=== PATIENT | female | born 2000 | race African-American/Black ===

== ENCOUNTER 2021-05-16 12:38 | Emergency (ER) | payer BC, SELFPAY ==
--- NOTE | 2021-05-16 12:49 | ED.URI ---
HPI - URI/Sore Throat General Chief Complaint: Upper Respiratory Infection Stated Complaint: body aches/congestion/cough/sore throat Time Seen by Provider: 05/16/21 12:49 Source: patient and RN notes reviewed History of Present Illness HPI Narrative: Patient is a 20-year-old female who presents to care with complaints of body aches, cough, congestion, sore throat and back pain. Patient states is been ongoing since May 12. Patient states that she was seen at [place] urgent [facility] on Tuesday and had a negative PCR Covid test. Patient states that she has been taking the steroid pack that they gave her at [place] as well as Tylenol for her symptoms. Denies of any known exposure or contact to flu, strep or Covid. No other acute complaints. No acute distress noted. Patient aware of the plan of care. Some parts of this dictation were generated by voice recognition software and may contain typographical and/or grammatical inaccuracies. Related Data Allergies Allergy/AdvReac Type Severity Reaction Status Date / Time No Known Allergies Allergy Verified 05/16/21 12:54 Review of Systems Review of Systems: CONSTITUTIONAL: Denies fever, chills, or sweats. EYES: Denies visual changes, redness, or discharge. ENT: Reports of sinus congestion and sore throat CARDIOVASCULAR: Denies chest pain, palpitations, or edema. RESPIRATORY: Reports of cough without dyspnea GASTROINTESTINAL: Denies abdominal pain, nausea, vomiting, or diarrhea. GENITOURINARY: Denies dysuria or hematuria. SKIN: Denies rash or itching. MUSCULOSKELETAL: Reports of mid back pain and body aches NEUROLOGIC: Denies headache, numbness, or weakness. All other systems reviewed are negative, except as documented in HPI. PMFSH Comments At the time of my signature, I reviewed and agree with the nursing past medical, surgical, social, and family history. There is no relevant family history pertinent to the patient complaint. Exam Narrative: GENERAL: This is a well-nourished, well-developed patient, in no apparent distress. HEAD: normocephalic, atraumatic. EYES: PERRL. Sclera clear/white. Vision is grossly intact. EARS: External ears normal, auditory canals clear and without drainage, TMs normal without perforation. Hearing grossly intact. NOSE: External nose normal with no obvious nasal discharge, nares without redness, clear rhinorrhea. THROAT: Mucous membranes moist, moderate erythema noted posterior oropharynx with mild postnasal drainage NECK: Neck supple, non-tender without lymphadenopathy, masses or thyromegaly. CARDIOVASCULAR: Regular rate and rhythm without murmurs, gallops, or rubs. RESPIRATORY: Clear to auscultation. Breath sounds equal bilaterally. No wheezes, rales, or rhonchi. SKIN: warm, intact with no suspicious lesions or rash, good texture and turgor. NEURO: awake, alert, and oriented to person, place and time. There were no obvious focal neurologic abnormalities. EXTREMITIES: No clubbing, cyanosis, or edema. BACK: Nontender without deformity or crepitance. No flank tenderness. Course Vital Signs Vital signs: Vital Signs Temperature 98.1 F 05/16/21 12:53 Pulse Rate 92 05/16/21 12:53 Respiratory Rate 16 05/16/21 12:53 Blood Pressure 130/82 05/16/21 12:53 Pulse Oximetry 98 05/16/21 12:53 Temperature 98.1 F 05/16/21 12:53 Pulse Rate 92 05/16/21 12:53 Respiratory Rate 16 05/16/21 12:53 Blood Pressure 130/82 05/16/21 12:53 Pulse Oximetry 98 05/16/21 12:53 Reviewed MDM - URI/Sore Throat MDM Narrative Medical decision making narrative: Reviewed lab results with the patient. She is aware that her flu swab was negative. Aware that strep swab was also negative. Educated the patient on culture we will call within 72 hours if culture is positive and antibiotics are necessary. Advised the patient to use [id number] medications such as Tylenol/ibuprofen as needed for her symptoms. May take a daily Claritin for postnasal dr
[2021-05-16 12:53] VITALS: BP 130/82; PULSE 92; RESP 16; TEMP 36.7; O2SAT 98
== END 2021-05-16 13:17 | disposition home or self-care (01) ==
PROVIDERS: Emergency Provider Nurse Practitioner Family
DX: B34.9 Viral infection, unspecified (principal)
CPT/HCPCS: 87081; 87804; 87880; 99213; G0463

== ENCOUNTER 2021-11-06 08:48 | Emergency (ER) | payer MEDICAID, SELFPAY ==
[2021-11-06 09:13] VITALS: BP 107/70; PULSE 89; RESP 12; TEMP 36.6; O2SAT 100
[2021-11-06 09:17] VITALS: O2SAT 100
[2021-11-06 09:32] VITALS: O2SAT 100
[2021-11-06] MEDS: MORPHINE SULFATE INJ (*CRX) 10 MG/ML AMP 4 MG IM (10:46)
--- NOTE | 2021-11-06 11:38 | ED.SKABFB ---
HPI - Skin/Abscess/Foreign Bdy General Chief complaint: Skin/Abscess/Foreign Body Stated complaint: abscess/boil Time Seen by Provider: 11/06/21 09:41 History of Present Illness HPI narrative: Patient is a 20-year-old female who presents ER with left axillary abscess. Present for 3 months. Waxing waning intensity of pain. Intermittently draining. Over the last couple days it started draining on its own once again. The drainage is yellow and thick. No fevers or chills or sweats. Has pain with palpation. Slight erythema around the opening. Has not seen a general surgeon or plastic surgeon for excision of cystic cavity. Related Data Allergies Allergy/AdvReac Type Severity Reaction Status Date / Time No Known Allergies Allergy Verified 05/16/21 12:54 Review of Systems Constitutional: Constitutional: Denies chills, Denies fever(s) and Denies weakness Musculoskeletal: Musculoskeletal: Denies arthralgias, Denies joint swelling and Denies muscle cramps Integumentary/Breasts: Skin/Breast: Reports erythema and Denies rash Comments: Draining abscess PMFSH Past Medical History Medical History (Updated 11/06/21 @ 11:54 by Van Sheth MD) Healthy female adult Surgical History Surgical History (Updated 11/06/21 @ 11:54 by Van Sheth MD) No pertinent past surgical history Exam Narrative: GENERAL: Well-appearing, well-nourished, and in no acute distress. HEAD: Normocephalic, atraumatic. CHEST: Clear to auscultation. No respiratory distress. HEART: Regular rate and rhythm. Normal peripheral pulses. EXTREMITIES: Normal range of motion. No edema. SKIN: Warm, dry, no rash. Draining abscess left axillary region and inferior aspect posterior. Slight surrounding erythema. NEURO: Alert and oriented x3. PSYCH: Normal mood and affect. Course Course Emergency Course: Patient given morphine for pain. Pressure applied around the drainage site until no additional drainage can be pushed out. Will start on Bactrim and pain medication. Referral to general surgery. Vital Signs Vital signs: Vital Signs Temperature 97.9 F 11/06/21 09:13 Pulse Rate 89 11/06/21 09:13 Respiratory Rate 12 11/06/21 09:13 Blood Pressure 107/70 11/06/21 09:13 Pulse Oximetry 100 11/06/21 09:13 Temperature 97.9 F 11/06/21 09:13 Pulse Rate 89 11/06/21 09:13 Respiratory Rate 12 11/06/21 09:13 Blood Pressure 107/70 11/06/21 09:13 Pulse Oximetry 100 11/06/21 09:32 Discharge Plan Discharge Clinical Impression: Abscess of axilla, left Patient Disposition: Home, Self-Care Condition: Stable Instructions: Antibiotic Form, Abscess (ED) Additional Instructions: Return the ER if you have worsening pain, you have new fever over 100.4 ?F, you cannot keep down food or water, you have additional concerns. Prescriptions: New sulfamethoxazole-trimethoprim [Bactrim DS] 800-160 mg tablet 1 tablet PO Q12H Qty: 20 RF: 0 hydrocodone-acetaminophen 5-325 mg tablet 1 tablet PO Q6H PRN (Reason: pain) Qty: 14 RF: 0 Follow-up/Referrals: Christian Xiong MD [Physician] - 1 Week UNKNOWN,DOCTOR [Primary Care Provider] - Stand Alone Forms: Work/School Release IP
[2021-11-06 11:45] VITALS: BP 105/83; PULSE 75; RESP 18; TEMP 36.7; O2SAT 100
== END 2021-11-06 11:45 | disposition home or self-care (01) ==
PROVIDERS: Emergency Provider Emergency Medicine
DX: L02.412 Cutaneous abscess of left axilla (principal)
CPT/HCPCS: 87070; 87077; 87147; 87186; 87205; 96372; 99283; J2270

== ENCOUNTER 2022-06-15 13:08 | Emergency (ER) | payer BC, SELFPAY ==
[2022-06-15 13:24] VITALS: BP 117/60; PULSE 89; RESP 16; TEMP 36.3; O2SAT 100
--- NOTE | 2022-06-15 14:01 | ED.FEMALEGU ---
HPI - Female Genitourinary General Chief complaint: Vaginal Bleeding Stated complaint: Vaginal bleeding Time Seen by Provider: 06/15/22 13:35 Source: patient Mode of arrival: ambulatory Limitations: no limitations History of Present Illness HPI Narrative: Patient is 21 years old though -Irish female came with vaginal bleeding started last night, slight, like it. This morning. She denies any fever, chills, nausea, vomiting, cramps. Patient is 0 para 0 0. Last menstrual period was May 21 until May 25, patient had vaginal intercourse without condom on May 28, subsequently received Plan B, June 06 patient had vaginal bleeding lasted for 2 days then resolved different than her regular., And the bleeding started again last night and looks like it. Today. Patient elected menstrual cycle on June 20. Related Data Allergies Allergy/AdvReac Type Severity Reaction Status Date / Time No Known Allergies Allergy Verified 05/16/21 12:54 Review of Systems Review of Systems: All systems reviewed & are unremarkable except as noted in HPI and below PMFSH Past Medical History Medical History Healthy female adult Surgical History Surgical History No pertinent past surgical history Exam Narrative: General appearance: Well-developed, well-nourished Skin: Normal color Head: Normocephalic, nontraumatic Eyes: Clear conjunctiva ENT: Oropharynx normal, ears normal, nose normal Neck: Supple, nontender Chest and respiratory: Airway patent, no respiratory distress, no accessory muscle use Heart: Regular rate/rhythm Abdomen: Soft, nontender, no organomegaly, quiet bowel sounds Vascular: Normal peripheral pulses, normal capillary refill. Musculoskeletal: Normal range of motion, nontender back Neurologic: Alert and oriented ?3, [employer] is normal as tested, no gross motor deficit : Speculum Exam - Vagina: normal appearance of the vagina and vaginal bleeding (Trace of fresh red bright blood) Speculum Exam - Cervix: normal appearance of the cervix and Cervical os closed Bimanual Exam- Adnexa, other: no masses Course [employer]/PA Physician Supervision Intermittent vaginal bleeding high likely secondary to Plan B Physical examination today showed no acute abnormalities, is negative. Vital Signs Vital signs: Vital Signs Temperature 36.3 C L 06/15/22 13:24 Pulse Rate 89 06/15/22 13:24 Respiratory Rate 16 06/15/22 13:24 Blood Pressure 117/60 06/15/22 13:24 Pulse Oximetry 100 06/15/22 13:24 Oxygen Delivery Room Air 06/15/22 13:24 Temperature 36.3 C L 06/15/22 13:24 Pulse Rate 89 06/15/22 13:24 Respiratory Rate 16 06/15/22 13:24 Blood Pressure 117/60 06/15/22 13:24 Pulse Oximetry 100 06/15/22 13:24 Oxygen Delivery Room Air 06/15/22 13:24 MDM - Female Genitourinary Differential Diagnosis Differential diagnosis: Likely other (Dysfunctional uterine bleeding) Critical Care Time Critical Care Time Critical Care Time: No Discharge Plan Discharge Clinical Impression: Dysfunctional uterine bleeding Patient Disposition: Home, Self-Care Condition: Stable Instructions: Antibiotic Form, Abnormal (Dysfunctional) Uterine Bleeding (ED) Additional Instructions: Return if symptoms are worsening , call your family physician for appointment, take Tylenol as as needed for aches and pain, continue home medications. Side effects of Plan B are Nausea or vomiting, dizziness, fatigue, headache, breast tenderness, bleeding between periods or heavier menstrual bleeding, lower
== END 2022-06-15 14:22 | disposition home or self-care (01) ==
PROVIDERS: Emergency Provider Emergency Medicine
DX: N93.8 Other specified abnormal uterine and vaginal bleeding (principal)
CPT/HCPCS: 81025; 99283

== ENCOUNTER 2022-06-21 20:07 | Emergency (ER) | payer BC, SELFPAY ==
[2022-06-21 20:20] VITALS: BP 136/62; PULSE 92; RESP 16; TEMP 36.5; O2SAT 100
[2022-06-21 20:36] LABS: Hematocrit 39.5 % (37.0-47.0); Hemoglobin 13.4 g/dL (12.0-15.0); Mean Corpuscular HGB Conc 33.9 g/dl (32-36); Mean Corpuscular Hemoglobin 25.4 pg (26-34); Mean Corpuscular Volume 74.8 fl (80-100); Mean Platelet Volume 8.9 fl (7.4-10.4); Platelet Count Result 410 k/mm3 (150-375); Red Blood Count 5.28 M/mm3 (4.2-5.4); Red Cell Distribution Width 13.6 % (11.5-14.5); White Blood Count 9.6 K/mm3 (4.5-10.0)
[2022-06-21 21:14] LABS: Basophils Absolute Manual 0.09 K/mm3 (0.0-0.1); Basophils Percent Manual 1 % (0-1); Eosinophils Absolute Manual 0.48 K/mm3 (0.02-0.5); Eosinophils Percent Manual 5 % (0-4); Lymphocytes Absolute Manual 3.74 K/mm3 (1.1-4.5); Monocytes Absolute Manual 0.48 K/mm3 (0.1-0.90); Monocytes Percent Manual 5 % (3-9); Neutrophils Percent Manual 50 % (46-73); Platelet Estimate Adequate (Adequate); Total Cells Counted 100
[2022-06-21 21:16] LABS: Rouleaux 1+ (NORMAL)
[2022-06-21 21:17] LABS: Anisocytosis 1+ (NORMAL); Macrocytosis 1+ (NORMAL); Microcytosis 1+ (NORMAL)
[2022-06-21 21:18] LABS: Atypical Lymphocytes Present; Smudge Cells FEW
[2022-06-21 21:44] LABS: Schistocytes None Seen (NORMAL)
[2022-06-21 21:58] VITALS: BP 107/79; PULSE 75
[2022-06-21 22:02] VITALS: BP 110/79; PULSE 86
[2022-06-21 22:06] VITALS: BP 107/69; PULSE 83
--- NOTE | 2022-06-21 23:30 | ED.FEMALEGU ---
HPI - Female Genitourinary General Chief complaint: Vaginal Bleeding Stated complaint: vaginal bleeding Time Seen by Provider: 06/21/22 22:56 Source: patient Mode of arrival: ambulatory Limitations: no limitations History of Present Illness HPI Narrative: This is a 21-year-old female that presents to the emergency department for abnormal uterine bleeding. Reports she had unprotected sex at the end of last month. On the first of this month she took Plan B. Since she has taken Plan B she has had irregular bleeding. Reports over the last 5 days she has had some heavy bleeding which prompted her to be seen. Denies fever, or pelvic pain. Related Data Allergies Allergy/AdvReac Type Severity Reaction Status Date / Time No Known Allergies Allergy Verified 06/21/22 20:19 Review of Systems Review of Systems: CONSTITUTIONAL: Denies fever GASTROINTESTINAL: Denies abdominal pain, vomiting All systems reviewed & are unremarkable except as noted in HPI and below PMFSH Past Medical History Medical History Healthy female adult Surgical History Surgical History No pertinent past surgical history Social History Social History (Updated 06/21/22 @ 23:35 by Ruba Cortez PA-C) Substance use: never Exam Narrative: GENERAL: Well-appearing, well-nourished, and in no acute distress. HEAD: Normocephalic, atraumatic. EYES: EOMI. CHEST: No respiratory distress. HEART: Regular rate EXTREMITIES: Normal range of motion. No edema. SKIN: Warm, dry, no rash. NEURO: No focal deficits. Alert and oriented x3. PSYCH: Normal mood and affect PELVIC: Normal external genitalia. Normal appearing cervix. Small amount of dark red blood in the vaginal vault Course Vital Signs Vital signs: Vital Signs Temperature 97.7 F 06/21/22 20:20 Pulse Rate 92 06/21/22 20:20 Respiratory Rate 16 06/21/22 20:20 Blood Pressure 136/62 06/21/22 20:20 Pulse Oximetry 100 06/21/22 20:20 Oxygen Delivery Room Air 06/21/22 20:20 Temperature 97.7 F 06/21/22 20:20 Pulse Rate 83 06/21/22 22:06 Respiratory Rate 16 06/21/22 20:20 Blood Pressure 107/69 06/21/22 22:06 Pulse Oximetry 100 06/21/22 20:20 Oxygen Delivery Room Air 06/21/22 20:20 MDM - Female Genitourinary MDM Narrative Medical decision making narrative: Patient presents emergency department for irregular menstrual bleeding. Reports she took a Plan B at the beginning of this month as she had unprotected sex at the end of last month. Since she has been having some irregular bleeding. She had some heavy bleeding over the last 5 days which prompted her to be seen. Her vitals are stable. Her hemoglobin is normal. No concerning amount of bleeding on exam. Patient does report she wishes to be started on some control pills. I will send her a month prescription. She was instructed she should follow-up with a supervisor crack off. She was given warnings to return to the ER Lab Data Attestation: I reviewed the patient's lab results. Result diagrams: 06/21/22 20:30 Labs: Lab Results 06/21/22 Range/Units 20:30 WBC 9.6 (4.5-10.0) K/mm3 RBC 5.28 (4.2-5.4) M/mm3 Hgb 13.4 (12.0-15.0) g/dL Hct 39.5 (37.0-47.0) % MCV 74.8 L (80-100) fl MCH 25.4 L (26-34) pg MCHC 33.9 (32-36) g/dl RDW 13.6 (11.5-14.5) % Plt Count 410 H (150-375) k/mm3 MPV 8.9 (7.4-10.4) fl Immature Gran % (Auto) Not Reportable Neut % (Auto) Not Reportable Lymph % (Auto) Not Reportable Murray % (Auto) Not Reportable Eos % (Auto) Not Reportable Baso % (Auto) Not Reportable Lymph # (Auto) Not Reportable Murray # (Auto) Not Reportable Eos # (Auto) Not Reportable Baso # (Auto) Not Reportable Abs Immat Gran (auto) Not Reportable Absolute Neuts (auto) Not Reportable Absolute Nucleated RBC Not Reportable Total Coun
== END 2022-06-22 00:11 | disposition home or self-care (01) ==
PROVIDERS: Emergency Provider Emergency Medicine
DX: N93.8 Other specified abnormal uterine and vaginal bleeding (principal)
CPT/HCPCS: 36415; 81025; 85025; 99284

== ENCOUNTER 2022-12-15 09:55 | Emergency (ER) | payer BC, SELFPAY ==
--- NOTE | ~2022-12-15 | CT_ITS ---
EXAMINATION: CT abdomen pelvis w con DATE: 12/15/2022 12:36 INDICATION: Lower abdominal and back pain and cramping. Nausea. TECHNIQUE: Computed tomography (CT) of the abdomen and pelvis was performed with 100 mL Omnipaque-350 intravenous contrast. Automated exposure control and iterative reconstruction technique were employe d. The dose-length product was 701.84 mGy-cm. COMPARISON: None FINDINGS: Lung bases are clear. Heart size is normal. No pericardial or pleural effusion. Liver, gallbladder, s pleen, pancreas, bilateral adrenal glands and kidneys are normal. Bowels including the appendix are n ormal. Bladder, anteverted uterus and left adnexa are unremarkable. Correlated enhancing margins to a likely partially collapsed 2.2 cm corpus luteum cyst at the right adnexa. Small amount of likely phy siologic free fluid in the cul-de-sac. No abscess or free intraperitoneal gas. Small fat-containing u mbilical hernia. A few mildly prominent but still normal-sized lymph nodes along the ileocolic chain with largest lymph node measuring up to 7 mm in maximal short axis diameter. Are pathologically enlar ged abdominal or pelvic lymphadenopathy. Mild thoracolumbar levocurvature. IMPRESSION: 1. 2.2 cm corpus luteum cyst at the right adnexa with small amount of likely physiologic free fluid i n the cul-de-sac. No other acute intra-abdominal/pelvic process. Reviewed, dictated and finalized at location A. IMPRESSION: 1. 2.2 cm corpus luteum cyst at the right adnexa with small amount of likely ph ysiologic free fluid in the cul-de-sac. No other acute intra-abdominal/pelvic p rocess.
--- NOTE | ~2022-12-15 | US_ITS ---
EXAMINATION: US pelvic complete w TV DATE: 12/15/2022 14:07 INDICATION: Right ovarian cyst Comparison:No prior studies for comparison. TECHNIQUE: Multiple transabdominal and endovaginal sonographic images of the pelvis performed. FINDINGS: The uterus measures 8.3 x 4 x 4.1 cm. The endometrial complex measures 1.5 cm. The right ovary measures 4 x 2.3 x 2.1 cm and the left ovary measures 2.3 x 1.3 x 1.8 cm. There are small follicles in each ovary. Normal doppler signal in both ovaries. There is free fluid in the pelvis. There are no abnormal masses seen on either side. IMPRESSION: 1. Mildly thickened endometrium measuring 1.5 cm. Reviewed, dictated and finalized at location A.
[2022-12-15 10:06] VITALS: BP 94/61; PULSE 103; RESP 18; TEMP 36.1; O2SAT 99
[2022-12-15 10:51] LABS: Basophils Absolute Auto 0.1 K/mm3 (0.0-0.1); Basophils Percent Auto 0.8 % (0.2-1.2); Eosinophils Absolute Auto 0.1 K/mm3 (0-0.3); Eosinophils Percent Auto 1.3 % (0-4.4); Hematocrit 39.6 % (37.0-47.0); Hemoglobin 13.6 g/dL (12.0-15.0); Immature Granulocyte Absolute 0.02 K/mm3 (0.00-0.031); Immature Granulocyte Percent A 0.3 % (0-0.5); Lymphocytes Absolute Auto 2.44 K/mm3 (0.9-3.2); Lymphocytes Percent Auto 31.5 % (18.3-44.2); Mean Corpuscular HGB Conc 34.3 g/dl (32-36); Mean Corpuscular Hemoglobin 25.7 pg (26-34); Mean Corpuscular Volume 74.9 fl (80-100); Mean Platelet Volume 9.4 fl (7.4-10.4); Monocytes Absolute Auto 0.6 K/mm3 (0.1-0.6); Monocytes Percent Auto 7.2 % (2.6-8.5); Neutrophils Absolute Auto 4.6 K/mm3 (1.3-6.7); Neutrophils Percent Auto 58.9 % (45.5-73.1); Platelet Count Result 377 k/mm3 (150-375); Red Blood Count 5.29 M/mm3 (4.2-5.4); White Blood Count 7.8 K/mm3 (4.5-10.0)
[2022-12-15 10:53] LABS: Appearance Urine Clear (Clear); Bilirubin Urine Negative (Negative); Blood Urine Negative (Negative); Color Urine Yellow (Yellow); Glucose Urine UA 3+ mg/dL (Negative); Ketones Urine Negative (Negative); Leukocyte Esterase Ur Negative LEU/UL (Negative); Nitrate Urine Negative (Negative); Protein Urine Negative (Negative); Specific Grav Ur 1.044 (1.001-1.035); Urobilinogen Urine 0.2 mg/dL (<2.0)
[2022-12-15 10:54] LABS: Add Urine Microscopic? NO
[2022-12-15 11:07] LABS: Alanine Aminotransferase 24 U/L (6-35); Albumin Level 3.9 g/dL (3.5-5.1); Alkaline Phosphatase 89 U/L (38-126); Anion Gap 7 mmol/L (8-16); Aspartate Amino Transferase 26 U/L (14-36); Bilirubin,Total 0.7 mg/dL (0.2-1.3); Blood Urea Nitrogen 13 mg/dL (7-17); Calcium 8.9 mg/dL (8.4-10.2); Carbon Dioxide 28 mmol/L (22-30); Chloride 97 mmol/L (98-107); Estimated CRCL calculation 129 ml/min; Estimated Glomerular Filt Rate > 60; Glucose 428 mg/dL (65-110); Lipase 60 U/L (23-300); Potassium 4.2 mmol/L (3.4-5.0); Sodium 132 mmol/L (137-145)
[2022-12-15 11:17] LABS: Microcytosis 1+ (NORMAL); Platelet Estimate Adequate (Adequate); Schistocytes None Seen (NORMAL)
[2022-12-15] MEDS: SODIUM CHLORIDE 0.9% IV 1,000 ML 999 ML IV CONT (11:59)
[2022-12-15] MEDS: ONDANSETRON INJ 4 MG/2 ML VIAL IV PUSH (12:00)
--- NOTE | 2022-12-15 12:28 | ED.ABDPAIN ---
HPI - Abdominal Pain General Chief Complaint: Abdominal Pain Stated Complaint: pain to back, abd Time Seen by Provider: 12/15/22 10:48 Source: patient Mode of arrival: ambulatory Limitations: no limitations History of Present Illness HPI narrative: Patient is a 22 y/o female who presents to the ED with c/o lower abdomen and lower back pain. Patient reports she developed intermittent cramping pain in her lower abdomen and lower back around 1 AM this morning. She thought she needed to have a bowel movement, but was unable to pass any stool. She complained of significant pain to her lower abdomen, lower back with trying to have a bowel movement. Patient did not take anything for pain. She has never had pain like this before. Patient last had a bowel movement yesterday, which was normal. She does report nausea associated with the pain, but denies any rectal bleeding, melena, fevers, vomiting, vaginal bleeding, vaginal discharge, dysuria, hematuria. Patient has normal menstrual cycles and is due to start her next cycle next week. Related Data Allergies Allergy/AdvReac Type Severity Reaction Status Date / Time No Known Allergies Allergy Verified 12/15/22 11:16 Review of Systems Review of Systems: CONSTITUTIONAL: Denies fever, chills, or sweats. CARDIOVASCULAR: Denies chest pain. RESPIRATORY: Denies dyspnea. GASTROINTESTINAL: See HPI. GENITOURINARY: Denies dysuria or hematuria. SKIN: Denies rash or itching. MUSCULOSKELETAL: See HPI. NEUROLOGIC: Denies headache, numbness, or weakness. All systems reviewed & are unremarkable except as noted in HPI and below PMFSH Past Medical History Medical History No pertinent past medical history Surgical History Surgical History No pertinent past surgical history Social History Social History Substance use: never Exam Narrative: GENERAL: Well appearing, obese, non-toxic, in no acute distress. HEAD: Normocephalic, atraumatic. NECK: Supple. No adenopathy, no masses. RESPIRATORY: Airway patent, respirations nonlabored. Clear to auscultation bilaterally, no rales, rhonchi, wheezing. CARDIOVASCULAR: Regular rate and rhythm without murmurs, rubs, or gallops. Radial pulses 2+ and equal bilaterally. ABDOMINAL: Soft, diffuse tenderness throughout abdomen, worse in epigastric region and along lower abdomen, RLQ>LLQ, nondistended, no hepatosplenomegaly. Normoactive BS. MUSCULOSKELETAL: Moves all extremities. Strength/ROM intact without gross deformities. No significant midline spinal tenderness. Mild paraspinal muscular tenderness in lumbosacral region, worse on right. SKIN: Warm, dry, normal color. No rashes. NEURO: A&O X3. Speech clear. Cranial nerves II-XII grossly intact. Steady gait. No ataxic movements. PSYCHIATRIC: Appropriate mood and affect. Normal interaction. Course Vital Signs Vital signs: Vital Signs Temperature 97.0 F L 12/15/22 10:06 Pulse Rate 103 H 12/15/22 10:06 Respiratory Rate 18 12/15/22 10:06 Blood Pressure 94/61 L 12/15/22 10:06 Pulse Oximetry 99 12/15/22 10:06 Oxygen Delivery Room Air 12/15/22 10:06 Temperature 97.0 F L 12/15/22 10:06 Pulse Rate 86 12/15/22 15:21 Respiratory Rate 16 12/15/22 15:21 Blood Pressure 119/83 12/15/22 15:21 Pulse Oximetry 100 12/15/22 15:21 Oxygen Delivery Room Air 12/15/22 10:06 MDM - Abdominal Pain MDM Narrative Medical decision making narrative: Patient presented to ED with lower abdomen/lower back cramping. Patient borderline tachycardic upon arrival, afebrile. Appears stable on exam, no acute distress. Tachycardia resolved by the time of my evaluation. Diffuse abdominal tenderness, worse throughout lower abdomen. CBC without leukocytosis or anemia. CMP fairly unremarkable, stable kidney function. Blood
[2022-12-15 13:01] VITALS: BP 102/62; PULSE 72; RESP 16; O2SAT 100
[2022-12-15] MEDS: KETOROLAC 30 MG/ML VIAL (*BKC) IV PUSH (14:47)
[2022-12-15 15:02] LABS: Hemoglobin A1C 12.8 % (<5.7)
[2022-12-15 15:21] VITALS: BP 119/83; PULSE 86; RESP 16; O2SAT 100
== END 2022-12-15 15:58 | disposition home or self-care (01) ==
PROVIDERS: Emergency Medicine; Emergency Provider Physician Assistant
DX: N83.11 Corpus luteum cyst of right ovary (principal); E11.65 Type 2 diabetes mellitus with hyperglycemia
CPT/HCPCS: 36415; 74177; 76830; 76856; 80053; 81003; 81025; 83036; 83690; 85025; 96361; 96365; 96375; 99284; J0131; J1885; J2405; J7030; Q9967

== ENCOUNTER 2023-02-08 09:01 | Emergency (ER) | payer BC, SELFPAY ==
[2023-02-08] VITALS (7 sets, daily range): BP systolic 111–112; BP diastolic 66–69; PULSE 66–87; RESP 16; TEMP 36.7; O2SAT 99–100
--- NOTE | ~2023-02-08 | US_ITS ---
EXAMINATION: US pelvic complete w TV DATE: 02/08/2023 10:40 INDICATION: Bilateral lower abdominal pain. TECHNIQUE: Multiple transabdominal and transvaginal sonographic images of the pelvis were obtained. COMPARISON: CT abdomen and pelvis 12/15/2022, pelvis ultrasound 12/15/2022 FINDINGS: TRANSABDOMINAL ULTRASOUND: The uterus measures 7.5 x 3.2 x 4.2 cm. There is no free fluid in the pelvis. TRANSVAGINAL ULTRASOUND: The endometrial complex measures 17 mm in thickness. The right ovary measures 3.9 x 2.9 x 3.7 cm. The left ovary measures 3.5 x 2.5 x 3.0 cm. There is normal vascular flow in the ovaries. IMPRESSION: 1. No etiology for the patient's symptoms. Reviewed, dictated and finalized at location A.
--- NOTE | ~2023-02-08 | CT_ITS ---
EXAMINATION: CT abdomen pelvis w con DATE: 02/08/2023 11:54 INDICATION: Diffuse lower abdominal pain. Nausea. TECHNIQUE: Computed tomography (CT) of the abdomen and pelvis was performed with 100 cc Omnipaque 350 intravenous contrast. The dose-length product was 603.08 mGy-cm. Automated exposure control and iter ative reconstruction technique were employed. COMPARISON: CT dated 12/15/2022 FINDINGS: Lung bases are unremarkable. Heart size normal. No significant pleural or pericardial effus ion. No significant vascular abnormality. No lymphadenopathy. Nonobstructive bowel pattern. There is a small involuting corpus luteal cyst of the left ovary. No free air or free fluid. Fatty infiltratio n of the liver. Gallbladder is present. The spleen, pancreas, adrenal glands and kidneys are unremark able. No hydronephrosis. Small amount of free fluid in the pelvis. No free air. No acute osseous abno rmality. IMPRESSION: 1. No acute abdominal abnormality. 2: Small involuting corpus luteal cyst of the left ovary measuring 1.9 x 0.3 cm. Trace free fluid in the pelvis. Reviewed, dictated and finalized at location L. IMPRESSION: 1. No acute abdominal abnormality. 2: Small involuting corpus luteal cyst of the left ovary measuring 1.9 x 0.3 c m. Trace free fluid in the pelvis.
--- NOTE | 2023-02-08 09:54 | ED.ABDPAIN ---
HPI - Abdominal Pain General Chief Complaint: Abdominal Pain <CARLOS Loza Last Filed: 02/08/23 18:20> Stated Complaint: abd pain <CARLOS Loza Last Filed: 02/08/23 18:20> Time Seen by Provider: 02/08/23 09:26 <CARLOS Loza Last Filed: 02/08/23 18:20> Source: patient <CARLOS Loza Last Filed: 02/08/23 18:20> Mode of arrival: ambulatory <CARLOS Loza Last Filed: 02/08/23 18:20> Limitations: no limitations <CARLOS Loaz Last Filed: 02/08/23 18:20> History of Present Illness HPI narrative: Patient is a 22 y/o female who presents to the ED with c/o lower abdominal pain. Patient reports she has noticed an abnormal vaginal odor for the last 1 week. She has had some mild vaginal irritation and increased discharge over the last 2 days. Denies any abnormal bleeding or yeast like sx's. She went to an urgent care today to be evaluated for BV as she has had a Hx of this. When she was examined at the urgent care, she experienced diffuse lower abdominal tenderness to palpation. She was then referred here for further evaluation. Patient denies feeling abdominal pain over the last couple of days, only when palpating her abdomen. She does note history of ovarian cysts. She denies any nausea, vomiting, diarrhea, constipation, fevers, dysuria, hematuria. She has not taken anything for pain. Patient denies concern for STDs and notes she is not currently sexually active. <CARLOS Loza Last Filed: 02/08/23 18:20> Related Data Allergies/Adverse Reactions: Allergies Allergy/AdvReac Type Severity Reaction Status Date / Time No Known Allergies Allergy Verified 12/15/22 11:16 <CARLOS Loaz Last Filed: 02/08/23 18:20> Review of Systems Review of Systems: CONSTITUTIONAL: Denies fever, chills, or sweats. CARDIOVASCULAR: Denies chest pain. RESPIRATORY: Denies dyspnea. GASTROINTESTINAL: See HPI. GENITOURINARY: See HPI. SKIN: Denies rash or itching. MUSCULOSKELETAL: Denies back pain, joint pain, or myalgia. <Lana Ramos PA-C - Last Filed: 02/08/23 18:20> All systems reviewed & are unremarkable except as noted in HPI and below <Lana Ramos PA-C - Last Filed: 02/08/23 18:20> [facility] Past Medical History Medical History: Medical History (Updated 02/09/23 @ 00:05 by Justen Rendon) Diabetes mellitus <Lana Ramos PA-C - Last Filed: 02/08/23 18:20> Surgical History Surgical History: Surgical History No pertinent past surgical history <Lana Ramos PA-C - Last Filed: 02/08/23 18:20> Social History Social History: Social History Substance use: never <Lana Ramos PA-C - Last Filed: 02/08/23 18:20> Exam Narrative: GENERAL: Well appearing, obese with BMI of 32.7, non-toxic, in no acute distress. HEAD: Normocephalic, atraumatic. NECK: Supple. No adenopathy, no masses. RESPIRATORY: Airway patent, respirations nonlabored. Clear to auscultation bilaterally, no rales, rhonchi, wheezing. CARDIOVASCULAR: Regular rate and rhythm without murmurs, rubs, or gallops. Radial pulses 2+ and equal bilaterally. ABDOMINAL: Soft, diffuse tenderness throughout abdomen, worse throughout lower abdomen, nondistended, no hepatosplenomegaly. Normoactive BS. MUSCULOSKELETAL: Moves all extremities. Strength/ROM intact without gross deformities. SKIN: Warm, dry, normal color. No rashes. NEURO: A&O X3. Speech clear. Cranial nerves II-XII grossly intact. Steady gait. No ataxic movements. PSYCHIATRIC: Appropriate mood and affect. Normal interaction. <Lana Ramos PA-C - Last Filed: 02/08/23 18:20> Course S[employer] WRAPPER/PA Physician Supervision I agree with midlevel documentation; I performed the medical
[2023-02-08] MEDS: ACETAMINOPHEN 500 MG TABLET 1000 MG PO (10:59)
[2023-02-08 11:02] LABS: Basophils Absolute Auto 0.1 K/mm3 (0.0-0.1); Eosinophils Absolute Auto 0.2 K/mm3 (0-0.3); Hematocrit 40.6 % (37.0-47.0); Hemoglobin 13.8 g/dL (12.0-15.0); Immature Granulocyte Absolute 0.02 K/mm3 (0.00-0.031); Immature Granulocyte Percent A 0.3 % (0-0.5); Lymphocytes Absolute Auto 2.39 K/mm3 (0.9-3.2); Lymphocytes Percent Auto 31.2 % (18.3-44.2); Mean Corpuscular Hemoglobin 25.7 pg (26-34); Mean Corpuscular Volume 75.6 fl (80-100); Mean Platelet Volume 9.1 fl (7.4-10.4); Monocytes Absolute Auto 0.6 K/mm3 (0.1-0.6); Monocytes Percent Auto 8.4 % (2.6-8.5); Neutrophils Absolute Auto 4.4 K/mm3 (1.3-6.7); Neutrophils Percent Auto 57.1 % (45.5-73.1); Platelet Count Result 408 k/mm3 (150-375); Red Blood Count 5.37 M/mm3 (4.2-5.4); Red Cell Distribution Width 13.2 % (11.5-14.5); White Blood Count 7.7 K/mm3 (4.5-10.0)
[2023-02-08 11:04] LABS: Alanine Aminotransferase 24 U/L (6-35); Alkaline Phosphatase 71 U/L (38-126); Anion Gap 3 mmol/L (8-16); Aspartate Amino Transferase 28 U/L (14-36); Bilirubin,Total 0.5 mg/dL (0.2-1.3); Blood Urea Nitrogen 14 mg/dL (7-17); Calcium 9.1 mg/dL (8.4-10.2); Carbon Dioxide 32 mmol/L (22-30); Chloride 100 mmol/L (98-107); Estimated CRCL calculation 133 ml/min; Estimated Glomerular Filt Rate > 60; Glucose 311 mg/dL (65-110); Lipase 83 U/L (23-300); Potassium 4.2 mmol/L (3.4-5.0); Sodium 135 mmol/L (137-145)
[2023-02-08 11:12] LABS: Appearance Urine Clear (Clear); Bilirubin Urine Negative (Negative); Blood Urine Negative (Negative); Color Urine Yellow (Yellow); Glucose Urine UA 3+ mg/dL (Negative); Ketones Urine Negative (Negative); Leukocyte Esterase Ur Negative LEU/UL (Negative); Nitrate Urine Negative (Negative); Protein Urine Trace mg/dL (Negative); pH Urine 7.5 (5.0-9.0)
[2023-02-08 11:14] LABS: Specific Grav Ur 1.038 (1.001-1.035)
[2023-02-08 11:16] LABS: Bacteria Urine None Seen /hpf; Non Pathogenic Casts 0-2; RBC Urine 0-2 /hpf (0-2); Squamous Epithelial Cell Urine Few /hpf (Few); WBC Urine 0-5 /hpf
[2023-02-08 11:27] LABS: Add Urine Microscopic? YES
[2023-02-08] MEDS: SODIUM CHLORIDE 0.9% IV 1,000 ML 999 ML IV CONT (11:40)
== END 2023-02-08 13:49 | disposition home or self-care (01) ==
PROVIDERS: Emergency Provider Physician Assistant
DX: N83.12 Corpus luteum cyst of left ovary (principal); N76.0 Acute vaginitis; E11.65 Type 2 diabetes mellitus with hyperglycemia; Z79.84 Long term (current) use of oral hypoglycemic drugs
CPT/HCPCS: 36415; 74177; 76830; 76856; 80053; 81001; 81003; 81025; 83690; 85025; 96360; 99284; A9270; J7030; Q9967

== ENCOUNTER 2023-05-14 08:22 | Emergency (ER) | payer BC, SELFPAY ==
--- NOTE | 2023-05-14 09:22 | ED.GENADULT ---
HPI - General Adult General Chief complaint: Urogenital-Female Stated complaint: Vaginal Issue Source: patient Mode of arrival: ambulatory Limitations: no limitations History of Present Illness HPI narrative: Patient presents for evaluation of vaginal irritation for the last month. She indicates she went to [facility] in March for the same symptoms. No pelvic exam was performed. She was given a prescription for bactrim which she took as directed. Denies any vaginal discharge. LMP now. She states she had similar symptoms earlier this year, at which time she also had an infected piercing. She was also given Bactrim at that time and both issues were treated successfully. Denies any fever, chills, nausea, vomiting, abdominal/low back pain, urinary symptoms. She is sexually active with one male partner, always using condoms. He is asymptomatic. She has a hx of ovarian cysts. Related Data Allergies Allergy/AdvReac Type Severity Reaction Status Date / Time No Known Allergies Allergy Verified 12/15/22 11:16 Review of Systems Review of Systems: CONSTITUTIONAL: Denies fever, chills, or sweats. EYES: Denies visual changes, redness, or discharge. ENT: Denies rhinorrhea, congestion, sore throat, or otalgia. CARDIOVASCULAR: Denies chest pain, palpitations, or edema. RESPIRATORY: Denies cough or dyspnea. GASTROINTESTINAL: Denies abdominal pain, nausea, vomiting, or diarrhea. GENITOURINARY: Reports vaginal irritation. Denies vaginal discharge or odor. Denies any urinary symptoms. SKIN: Denies rash or itching. MUSCULOSKELETAL: Denies back pain, joint pain, or myalgia. NEUROLOGIC: Denies headache, numbness, dizziness, or weakness. PSYCHIATRIC: Denies anxiety or depression. [facility] Past Medical History Medical History Diabetes mellitus Surgical History Surgical History No pertinent past surgical history Family History Family History Father Hypertension Social History Social History (Updated 05/14/23 @ 09:32 by CHELY Marina, GILL) Smoking status: Never smoker Alcohol intake: current Alcohol use details: social Substance use: never Living arrangements: alone Gender identity (if verbalized by the patient): Female Sexual Orientation (if Verbalized by the Patient): Straight or Heterosexual Spiritual care concerns: No Exam Narrative: GENERAL: Well-appearing, well-nourished, and in no acute distress. HEAD: Normocephalic, atraumatic. EYES: PERRLA and EOMI. ENT: Nares clear, no rhinorrhea or epistaxis. Mucous membranes moist. Oropharynx without tonsillar hypertrophy exudate or other lesions. Bilateral TMs pearly enriquez nonbulging NECK: Supple. No adenopathy or masses. No carotid bruits or JVD CHEST: Clear to auscultation. No respiratory distress. No wheezes rales or rhonchi HEART: Regular rate and rhythm. No murmur heard. Normal peripheral pulses. ABDOMEN: Soft, nontender, nondistended, normal active bowel sounds. EXTREMITIES: Normal range of motion. No edema. GENITAL: No external genital lesions. Mild tenderness with bimanual exam upon entrance into the vaginal vault. Moderate amount of sanguinous drainage present. SKIN: Warm, dry, no rash. NEURO: No focal deficits. Alert and oriented x3. PSYCH: Normal mood and affect. Course Course Emergency Course: This is a 22-year-old female who presented for evaluation of vaginal irritation . Urine today without evidence of UTI. She did have tenderness with bimanual exam but states that this is what normally occurs when she has pelvic exams. Furthermore, she has a history of ovarian cyst. Doubt PID. Swabs obtained today for STIs. Will treat with Flagyl and Diflucan. Follow up with primary provider. Go to the emergency department for worsening symptoms. Sherri
[2023-05-14 09:54] VITALS: BP 120/76; PULSE 91; RESP 16; TEMP 36.5; O2SAT 100
[2023-05-14 15:42] LABS: Trichomonas Vag PCR NOT DETECTED (NOT DETECTE)
[2023-05-14 16:07] LABS: Chlamydia trachomatis NOT DETECTED (NOT DETECTE); Neisseria gonorrhoeae PCR NOT DETECTED (NOT DETECTE)
== END 2023-05-14 10:35 | disposition home or self-care (01) ==
PROVIDERS: Emergency Provider Nurse Practitioner
DX: N76.0 Acute vaginitis (principal); E11.9 Type 2 diabetes mellitus without complications
CPT/HCPCS: 81003; 87491; 87591; 87661; 99214; G0463